=== PATIENT | female | born 1990 | race Two or more races ===

== ENCOUNTER 2016-07-29 13:57 | Emergency (ER) | payer OTHER, MEDICAID ==
[~2016-07-29] VITALS: Ht 162.6 cm; Wt 103.9 kg
[~2016-07-29 13:57] MED LIST: /BUSP5TA; ALBU17IN INH; ALBU17IN2 INH; ALBU83IN INH; AMBI5TAB; BUSP10TA2; CELE40TA; CYMB60CA3 PO; LOESTRIN24 PO; MELO15TA4 PO; METH-107 PO; TYLE500T78 PO; VALT500T PO; VALTREX PO; XANA0.25 PO; ZOLO100T PO; [UNRECOGNIZED DRUG - OTHER] TOPICAL
[2016-07-29] MEDS ORDERED: MORPHINE 2 MG/ML 1ML SYRINGE IV ONE (16:15)
[2016-07-29 16:37] LABS: BASO % 0.6 % (0.0-1.0); EOS # 0.2 K/mm3 (0.0-0.50); EOS % 2.2 % (0.0-3.0); LARGE UNSTAINED CELL # 0.1 K/mm3 (0.0-0.4); LARGE UNSTAINED CELL % 1.3 % (0.0-4.0); LYMPH # 3.1 K/mm3 (1.5-6.5); LYMPH % 32.3 % (24.0-44.0); MEAN CORPUSCULAR HEMOGLOBIN 29.8 pg (27.0-33.0); MEAN CORPUSCULAR HGB CONC 32.8 g/dl (32.0-36.5); MONO # 0.5 K/mm3 (0.0-0.8); MONO % 5.3 % (0.0-5.0); NEUTROPHILS # 5.3 K/mm3 (1.8-7.7); NEUTROPHILS % 58.4 % (36.0-66.0); PLATELET COUNT, AUTOMATED 253 k/mm3 (150-450); RED CELL DISTRIBUTION WIDTH 13.3 % (11.5-14.5); WHITE BLOOD COUNT 9.1 K/mm3 (4.0-10.0)
[2016-07-29 16:56] LABS: ALBUMIN 3.8 GM/DL (3.2-5.2); ALBUMIN/GLOBULIN RATIO 0.93 (1.00-1.93); ALKALINE PHOSPHATASE 70 U/L (45-117); ALT/SGPT 25 U/L (12-78); ANION GAP 6 MEQ/L (8-16); AST/SGOT 19 U/L (15-37); BILIRUBIN,DIRECT < 0.1 MG/DL (0.0-0.2); BILIRUBIN,TOTAL 0.4 MG/DL (0.2-1.0); BLOOD UREA NITROGEN 12 MG/DL (7-18); CALCIUM LEVEL 8.6 MG/DL (8.5-10.1); CARBON DIOXIDE LEVEL 29 MEQ/L (21-32); CHLORIDE LEVEL 107 MEQ/L (98-107); CREATININE FOR GFR 0.67 MG/DL (0.55-1.02); GLOMERULAR FILTRATION RATE > 60.0 (>60); GLUCOSE, FASTING 81 MG/DL (70-105); POTASSIUM SERUM 3.9 MEQ/L (3.5-5.1); SODIUM LEVEL 142 MEQ/L (136-145); TOTAL PROTEIN 7.9 GM/DL (6.4-8.2)
[2016-07-29 17:19] LABS: CONTROL LINE HCG INT CTR LINE PRESENT
[2016-07-29 17:44] VITALS: BP 166/72
== END 2016-07-29 17:45 | disposition home or self-care (01) ==
LOC: M ED 16:31
DX: K92.2 Gastrointestinal hemorrhage, unspecified (principal); K64.4 Residual hemorrhoidal skin tags

== ENCOUNTER → 2017-12-05 | Outpatient (CLI) | payer MEDICAID ==
[2017-12-05 16:45] LABS: CHOLESTEROL LEVEL 141 MG/DL (< 200)
[2017-12-05 16:54] LABS: ESTIMATED AVERAGE GLUCOSE 105 MG/DL (60-110); HEMOGLOBIN A1c 5.3 %
== END ==
LOC: M LRY 11:33
DX: F33.40 Major depressive disorder, recurrent, in remission, unspecified (principal)
CPT/HCPCS: 82465

== ENCOUNTER → 2017-12-05 | Outpatient (REF) | payer OTHER, MEDICAID ==
[2017-12-05 17:07] LABS: ESTIMATED AVERAGE GLUCOSE 105 MG/DL (60-110); HEMOGLOBIN A1c 5.3 %
== END ==
LOC: M SFHCLERA 11:27
DX: F31.9 Bipolar disorder, unspecified (principal)

== ENCOUNTER → 2017-12-16 | Outpatient (REF) | payer OTHER | LOC: M SFHCLERA 09:17 | DX: Z12.4 Encounter for screening for malignant neoplasm of cervix (principal) ==

== ENCOUNTER → 2018-10-28 | Outpatient (REF) | payer OTHER ==
[~2018-10-28] MED LIST changes: +MELO15TA28 PO; -MELO15TA4 PO; -METH-107 PO; +METH1TAB40 PO
[2018-10-28 22:09] LABS: CHLAMYDIA DNA AMPLIFICATION NEGATIVE (NEGATIVE); GC DNA AMPLIFICATION NEGATIVE (NEGATIVE)
== END ==
LOC: M SFHCLERA 13:55
PROVIDERS: ATTEND Nurse Practitioner Family
DX: R53.81 Other malaise (principal)

== ENCOUNTER → 2020-02-11 | Outpatient (CLI) | payer OTHER | LOC: M LRY 10:00 | PROVIDERS: ATTEND Family Medicine | DX: Z12.4 Encounter for screening for malignant neoplasm of cervix (principal); R87.615 Unsatisfactory cytologic smear of cervix ==

== ENCOUNTER → 2020-04-20 | Outpatient (REF) | payer OTHER ==
[~2020-04-20] MED LIST changes: +METH-1164 PO; -METH1TAB40 PO
== END ==
LOC: M SFHCLERA 11:27
PROVIDERS: ATTEND Family Medicine
DX: Z12.4 Encounter for screening for malignant neoplasm of cervix (principal)

== ENCOUNTER 2023-04-24 07:44 | Emergency (ER) | payer OTHER ==
[~2023-04-24] VITALS: Ht 162.6 cm; Wt 97.7 kg
[~2023-04-24 07:44] MED LIST changes: +ALBU2.5V10 INH; -ALBU83IN INH; -CYMB60CA3 PO; +CYMB60CA4 PO
[2023-04-24 07:45] VITALS: BP 158/96; TEMP 98.5; O2SAT 98
[2023-04-24 08:32] LABS: BASO % 0.5 % (0.0-1.0); EOS # 0.1 10^3/uL (0.0-0.5); EOS % 1.4 % (0.0-3.0); HEMATOCRIT 43.1 % (36.0-47.0); HEMATOCRIT 43.4 % (36.0-47.0); HEMOGLOBIN 14.5 g/dl (12.0-15.5); HEMOGLOBIN 14.6 g/dl (12.0-15.5); LYMPH # 2.3 10^3/uL (1.5-5.0); LYMPH % 29.1 % (24.0-44.0); MEAN CORPUSCULAR HEMOGLOBIN 29.1 pg (27.0-33.0); MEAN CORPUSCULAR HEMOGLOBIN 29.9 pg (27.0-33.0); MEAN CORPUSCULAR HGB CONC 33.4 g/dl (32.0-36.5); MEAN CORPUSCULAR HGB CONC 33.9 g/dl (32.0-36.5); MEAN CORPUSCULAR VOLUME 87.1 fl (80.0-96.0); MEAN CORPUSCULAR VOLUME 88.1 fl (80.0-96.0); MONO # 0.9 10^3/uL (0.0-0.8); NEUTROPHILS # 4.4 10^3/uL (1.5-8.5); NEUTROPHILS % 57.4 % (36.0-66.0); PLATELET COUNT, AUTOMATED 232 10^3/uL (150-450); PLATELET COUNT, AUTOMATED 237 10^3/uL (150-450); RED BLOOD COUNT 4.89 10^6/uL (4.00-5.40); RED BLOOD COUNT 4.98 10^6/uL (4.00-5.40); WHITE BLOOD COUNT 7.7 10^3/uL (4.0-10.0)
[2023-04-24] MEDS ORDERED: NITR2OI TOP (10:41)
[2023-04-24] MEDS ORDERED: COLA100C5 PO (10:41)
[2023-04-24] MEDS ORDERED: MIRA3350 PO (10:41)
== END 2023-04-24 10:54 | disposition home or self-care (01) ==
LOC: M ED 07:44
DX: K64.8 Other hemorrhoids (principal); K60.2 Anal fissure, unspecified; M79.7 Fibromyalgia; F17.290 Nicotine dependence, other tobacco product, uncomplicated; Z88.8 Allergy status to other drugs, medicaments and biological substances; Z79.1 Long term (current) use of non-steroidal anti-inflammatories (NSAID); Z79.899 Other long term (current) drug therapy; Z79.51 Long term (current) use of inhaled steroids

== ENCOUNTER 2024-02-26 06:47 | Day surgery (SDC) | payer OTHER ==
[~2024-02-26] VITALS: Ht 162.6 cm; Wt 103.1 kg
[~2024-02-26 06:47] MED LIST changes: +ALPR1TAB3 PO; +COLA100C5 PO; +LAMO25TA4 PO; +LORA2TAB14 PO; +LUMA21CA PO; +MIRA3350 PO; +NITR2OI TOP; +VENTAER INH
[2024-02-26] MEDS ORDERED: propofoL 200 MG/20 ML VIAL As Ordered ONE (07:09)
[2024-02-26 07:40] VITALS: TEMP 99
[2024-02-26 07:51] VITALS: BP 146/77; O2SAT 100
== END 2024-02-26 07:56 | disposition home or self-care (01) ==
LOC: M OPP 06:47
PROVIDERS: ATTEND Surgery
DX: K92.1 Melena (principal); K64.0 First degree hemorrhoids; K64.4 Residual hemorrhoidal skin tags; K21.9 Gastro-esophageal reflux disease without esophagitis; Z87.19 Personal history of other diseases of the digestive system; J45.909 Unspecified asthma, uncomplicated; Z79.899 Other long term (current) drug therapy; Z88.8 Allergy status to other drugs, medicaments and biological substances; Z88.5 Allergy status to narcotic agent; Z87.891 Personal history of nicotine dependence

== ENCOUNTER 2024-05-19 09:35 | Emergency (ER) | payer OTHER ==
[~2024-05-19] VITALS: Ht 162.6 cm; Wt 105.0 kg
[2024-05-19 10:02] VITALS: BP 132/75; TEMP 97.7; O2SAT 100
== END 2024-05-19 12:50 | disposition left against medical advice (07) ==
LOC: M ED 09:35
DX: Z53.21 Procedure and treatment not carried out due to patient leaving prior to being seen by health care provider (principal)